=== PATIENT | male | born 1975 | race Caucasian/White ===

== ENCOUNTER → 2017-12-16 | Outpatient (CLI) | payer OTHER ==
--- NOTE | 2017-12-16 13:02 | DIAGNOSTIC IMAGING REPORT ---
Biliary ultrasound CLINICAL HISTORY: OTHER SPECIFIED ABNORMAL FINDINGS OF BLOOD CHEMISTRY COMPARISON STUDY: No previous studies for comparison. FINDINGS: The pancreas appears sonographically normal. The gallbladder appears sonographically normal. There is no right-sided hydronephrosis. There is no ductal dilatation. No hepatic masses are visualized. There is borderline increase in hepatic echogenicity. IMPRESSION: 1. Borderline increase in hepatic echogenicity. This could indicate hepatic steatosis 2. Otherwise normal biliary ultrasound. No ductal dilatation. Electronically signed by: Merrill Bey M.D. 12/16/2017 1:01 PM Dictated Date/Time: 12/16/2017 1:00 PM
== END | disposition home or self-care (01) ==
LOC: C.ULTR 11:34
PROVIDERS: ATTEND Family Medicine
DX: R79.89 Other specified abnormal findings of blood chemistry (principal)